=== PATIENT | female | born 1980 | race African-American/Black ===

== ENCOUNTER 2022-05-30 10:57 | Emergency (ER) | payer SELFPAY ==
--- NOTE | 2022-05-30 13:46 | ER ---
Nurse's Notes [facility] Name: Liliana Briseno Age: 41 yrs Sex: Female : 1980 Arrival Date: 05/30/2022 Time: 11:00 Bed Waiting Private MD: Diagnosis: SARS-associated coronavirus as the cause of diseases classified elsewhere;Rhinorrhea;Myalgia Presentation: 05/30 11:53 Chief complaint: Patient states: BAIG, sore throat, cough x 2 days. Coronavirus screen: jl Vaccine status: Patient reports receiving the 2nd dose of the covid vaccine. congestion, cough unrelated to allergies, headache, Client presents with at least one sign or symptom that may indicate coronavirus-19. Standard/surgical mask placed on the client. Ebola Screen: No symptoms or risks identified at this time. Initial Sepsis Screen: Does the patient meet any 2 criteria? No. Patient's initial sepsis screen is negative. Does the patient have a suspected source of infection? No. Patient's initial sepsis screen is negative. Risk Assessment: Do you want to hurt yourself or someone else? Patient reports no desire to harm self or others. Onset of symptoms was May 29, 2022. 11:53 Method Of Arrival: Ambulatory [facility] 11:53 Acuity: MARCIE 4 jl7 Triage Assessment: 12:00 Headache History: The patient has had previous headaches and this one is similar to jl7 previous episodes. General: Appears in no apparent distress. uncomfortable, Behavior is calm, cooperative, appropriate for age. Pain: Complains of pain in BAIG Pain currently is 5 out of 10 on a pain scale. Pain began gradually, Also complains of no other associated symptoms. Neuro: Level of Consciousness is awake, alert, obeys commands, Oriented to person, place, time, situation. 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 - Social history:: Smoking status: Reported history of juuling and/or vaping. Screenin:00 Abuse screen: Denies threats or abuse. Denies injuries from another. Nutritional jl7 screening: No deficits noted. Tuberculosis screening: No symptoms or risk factors identified. Fall Risk None identified. Assessment: 13:00 Reassessment: Patient appears in no apparent distress at this time. No changes from jl7 previously documented assessment. Patient and/or family updated on plan of care and expected duration. Pain level reassessed. Patient is alert, oriented x 3, equal unlabored respirations, skin warm/dry/pink. Vital Signs: 11:53 BP 156 / 86; Pulse 80; Resp 17; Temp 98.2; Pulse Ox 100% on R/A; Weight 122.47 kg; jl7 Height 5 ft. 8 in. (172.72 cm); Pain 5/10; 11:53 Body Mass Index 41.05 (122.47 kg, 172.72 cm) jl7 ED Course: 11:00 Patient arrived in ED. mr 11:25 Jun Phillips DO is Attending Physician. ms3 11:44 SARS-COV-2 RT PCR (Document "Date of Onset" if Symptomatic) Sent. 11:55 Triage completed. jl7 11:55 Arm band placed on right wrist. Patient placed in waiting room, Patient notified of jl7 wait time. 13:00 Patient has correct armband on for positive identification. jl7 13:44 Vinicius Tariq DO is Referral Physician. ms3 14:04 No provider procedures requiring assistance completed. Patient did not have IV access jl7 during this emergency room visit. Administered Medications: No medications were administered Medication: 14:04 VIS not applicable for this client. jl7 Outcome: 13:45 Discharge ordered by . ms3 14:04 Discharged to home ambulatory. jl7 14:04 Condition: stable 14:04 Discharge instructions given to patient, Instructed on discharge instructions, follow up and referral plans. medication usage, Demonstrated understanding of instructions, follow-up care, medications, Prescriptions given X 1. 14:05 Patient left the ED. jl7 Signatures: Peggy Jaquez mr Tino Michel RN RN jl7 Jun Phillips DO DO ms3 [address] Corrections: (The following items were deleted from the chart) 11:55 11:55 Home Meds: None; jl7 jl7
--- NOTE | 2022-05-30 13:46 | EDPHYS ---
Physician Documentation [facility] Name: Liliana Briseno Age: 41 yrs Sex: Female : 1980 Arrival Date: 05/30/2022 Time: 11:00 Bed Waiting Private MD: ED Physician Jun Phillips HPI: 05/30 11:41 This 41 yrs old Black Female presents to ER via Unassigned with complaints of Headache, ms3 Sore Throat, Congestion, Cough. 11:42 The patient or guardian reports cough. Onset: The symptoms/episode began/occurred ms3 gradually, yesterday. Severity of symptoms: At their worst the symptoms were moderate, in the emergency department the symptoms are unchanged. Modifying factors: The symptoms are alleviated by nothing, the symptoms are aggravated by nothing. Associated signs and symptoms: Pertinent positives: rhinorrhea, sore throat, Pertinent negatives: nausea, vomiting. 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 - Social history:: Smoking status: Reported history of juuling and/or vaping. ROS: 11:42 Constitutional: Negative for fever, and chills. ms3 11:42 Abdomen/GI: Negative for abdominal pain, nausea, vomiting, diarrhea, and constipation, MS/Extremity: Negative for injury and deformity, Skin: Negative for injury, rash, and discoloration, Neuro: Negative for headache, weakness, numbness, tingling. Hematologic/Lymphatic: Negative for swollen nodes, abnormal bleeding, and unusual bruising. 11:42 ENT: Positive for rhinorrhea, sore throat. Exam: 11:42 Constitutional: This is a well developed, well nourished patient who is awake, alert, ms3 and in no acute distress. Head/Face: Normocephalic, atraumatic. Neck: Trachea midline, no cervical lymphadenopathy. Supple, full range of motion without nuchal rigidity, or vertebral point tenderness. No Meningismus. Chest/axilla: Normal chest wall appearance and motion. Nontender with no deformity. Cardiovascular: Regular rate and rhythm with a normal S1 and S2. No gallops, murmurs, or rubs. Normal PMI, no JVD. No pulse deficits. Respiratory: Lungs have equal breath sounds bilaterally, clear to auscultation and percussion. No rales, rhonchi or wheezes noted. No increased work of breathing, no retractions or nasal flaring. Abdomen/GI: Soft, non-tender, with normal bowel sounds. No distension or tympany. No guarding or rebound. No evidence of tenderness throughout. Skin: Warm, dry with normal turgor. Normal color with no rashes, no lesions, and no evidence of cellulitis. MS/ Extremity: Pulses equal, no cyanosis. Neurovascular intact. Full, normal range of motion. Neuro: Awake and alert, GCS 15, oriented to person, place, time, and situation. Cranial nerves II-XII grossly intact. Motor strength 5/5 in all extremities. Sensory grossly intact. Cerebellar exam normal. Normal gait. Psych: Awake, alert, with orientation to person, place and time. Behavior, mood, and affect are within normal limits. Vital Signs: 11:53 BP 156 / 86; Pulse 80; Resp 17; Temp 98.2; Pulse Ox 100% on R/A; Weight 122.47 kg; jl7 Height 5 ft. 8 in. (172.72 cm); Pain 5/10; 11:53 Body Mass Index 41.05 (122.47 kg, 172.72 cm) jl7 MDM: 11:42 Differential Diagnosis: Bronchitis Upper Respiratory Infection Other COVID. ms3 13:45 Patient medically screened. ms3 13:45 Data reviewed: vital signs, nurses notes, lab test result(s), and as a result, I will ms3 discharge patient. Data interpreted: Pulse oximetry: on room air is 100 %. Interpretation: normal. Counseling: I had a detailed discussion with the patient and/or guardian regarding: the historical points, exam findings, and any diagnostic results supporting the discharge/admit diagnosis, lab results, the need for outpatient follow up, to return to the emergency department if symptoms worsen or persist or if there are any questions or concerns that arise at home. ED course: Patient is improved, in NAD, non-toxic appearing, ambulatory in ED, speaking full sentences.. 05/30 11:41 Order name: SARS-COV-2 RT PCR (Document "Date of Onset" if Symptomatic); Complete Time: ms3 13:11 Administered Medications: No medications were administered Disposition Summary: 05/30/22 13:45 Discharge Ordered Location: Home ms3 Condition: Stable ms3 Diagnosis - SARS-associated coronavirus as the cause of diseases classified elsewhere ms3 - Rhinorrhea ms3 - Myalgia ms3 Followup: ms3 - With: Vinicius Tariq DO - When: 2 - 3 days - Reason: Recheck today's complaints Discharge Instructions: - Discharge Summary Sheet ms3 - COVID-19 ms3 - Things to Know about the COVID-19 Pandemic - [facility] ms3 Forms: - Medication Reconciliation Form ms3 - Work release form ms3 - Thank You Letter ms3 - Antibiotic Education ms3 - Prescription Opioid Use ms3 Prescriptions: - Tessalon Perles 100 mg Oral Capsule - take 1 capsule by ORAL route every 8 hours As needed; 15 capsule; Refills: 0, ms3 Product Selection Permitted Signatures: Dispatcher [employer] Tino Rea RN RN Jun Herrera DO DO ms3 Corrections: (The following items were deleted from the chart) 11:55 11:55 Home Meds: None; nieves jlGiovanni
[2022-05-30 14:14] VITALS: BP 156/86; TEMP 98.2; O2SAT 100
--- OUTSIDE RECORDS SUMMARY | 2022-06-01 14:14 | XMS REPORT | Continuity of Care Document ---
:1980 Author Organization [facility] t Address [address] [place] [address] Care Team Providers Name Role Phone CORADO Attending Clinician Unavailable MD JANNETTE MCGUIRE Attending Clinician Unavailable MAYNOR Attending Clinician Unavailable CARMEN Attending Clinician Unavailable MD JANNETTE MCGUIRE Admitting Clinician Unavailable Problems This patient has no known problems. Allergies, Adverse Reactions, Alerts Allergy Allergy Status Severity Reaction(s) Onset Inactive Treating Comm ents Source Name Type Date Date Clinician NO KNOWN Allergy Active [facility] Medications This patient has no known medications. Vital Signs Vital Name Observation Time Observation Value Comments Source HEIGHT 2020-07-27 00:00:00 172.7 cm WEIGHT 2020-07-27 00:00:00 129.275 kg Procedures This patient has no known procedures. Encounters Start End Encounter Admission Attending Care Care Encounter Source Date/Time Date/Time Type Type Clinicians Facility Department ID 2020-07-27 2020-07-27 Emergency ER [facility] Emergency [id number] [facility] 14:28:00 14:28:00 2020-04-28 2020-04-28 Emergency MICKIE, [facility] [id number] [place] 00:00:00 00:00:00 MIGUEL [address] 2020-04-05 2020-04-05 Emergency MANISHTran, [facility] [id number] [place] 00:00:00 00:00:00 TAURUS [address] 2019-12-05 2019-12-06 Emergency CARMEN, [facility] [id number] [place] 00:00:00 00:00:00 SYDNI [address] 2018-08-26 2018-08-26 Emergency [facility] [id number] [place] 23:04:13 23:04:13 Health 2018-08-26 2018-08-26 Emergency [facility] [id number] [place] 16:18:04 16:18:04 Health Results Test Description Test Time Test Comments Results Result Comments Source SARS coronavirus 2 RNA [Presence] in Respiratory speci men by 2020-04-05 20:44:14 ARIANA with probe detection Test Item Value Reference Range Interpretation Comme nts SARS coronavirus 2 RNA [Presence] in Respiratory Not detected Not-D etected specimen by ARIANA with probe detection (test code = 59757-0)
== END 2022-05-30 14:05 | disposition home or self-care (01) ==
LOC: ER 10:57
DX: U07.1 COVID-19 (principal); M79.10 Myalgia, unspecified site; I10 Essential (primary) hypertension
CPT/HCPCS: 99283; U0003

== ENCOUNTER 2022-10-30 01:46 | Emergency (ER) | payer SELFPAY ==
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
[2022-10-30 02:44] LABS: Hematocrit 32.5 % (36.0-45.0); MCV 72.1 fL (80-100); MPV 7.6 fL (7.6-11.3); RBC Red Blood Cell Count 4.51 M/uL (3.86-4.86)
[2022-10-30 02:45] LABS: Protime INR 1.16
[2022-10-30] MEDS ORDERED: MORPHINE 4 MG/ML SYR ONE (02:52)
[2022-10-30] MEDS ORDERED: ONDANSETRON 4 MG/2 ML VIAL ONE (02:52)
[2022-10-30 03:02] LABS: Troponin High Sensitivity 6.4 pg/mL (<58.9)
[2022-10-30 03:16] LABS: SARS-COV-2 RT PCR NEGATIVE (NEGATIVE)
--- NOTE | 2022-10-30 04:50 | ER ---
Nurse's Notes [facility] Name: Liliana Briseno Age: 41 yrs Sex: Female : 1980 Arrival Date: 10/30/2022 Time: 01:49 Bed 17 Private MD: Diagnosis: Chest pain, unspecified Presentation: 10/30 02:05 Chief complaint: Patient states: I woke up with a sharp chest pain. I thought it was a jb4 gas pain so I took Veronica[place] and it did not help, I tried BC powder and it did not help. When I lay down it feels more like someone sitting on my chest. Coronavirus screen: At this time, the client does not indicate any symptoms associated with coronavirus-19. Ebola Screen: No symptoms or risks identified at this time. Initial Sepsis Screen: Does the patient meet any 2 criteria? HR > 90 bpm. Yes Does the patient have a suspected source of infection? No. Patient's initial sepsis screen is negative. Risk Assessment: Do you want to hurt yourself or someone else? Patient reports no desire to harm self or others. Onset of symptoms was October 30, 2022. Transition of care: patient was not received from another setting of care. 02:05 Method Of Arrival: Ambulatory jb4 02:05 Acuity: MARCIE 3 jb4 Historical: - Allergies: 02:08 No Known Allergies; jb4 - Home Meds: 02:08 None [Active]; jb4 - PMHx: 02:08 Hypertensive disorder; jb4 - PSHx: 02:08 Aortic Repair; jb4 - Immunization history:: Adult Immunizations up to date. - Social history:: Smoking status: Patient denies any tobacco usage or history of. Patient uses alcohol, occasionally. - Family history:: not pertinent. - Hospitalizations: : No recent hospitalization is reported. Screenin:10 [facility] ED Fall Risk Assessment (Adult) History of falling in the last 3 months, jb4 including since admission No falls in past 3 months (0 pts) Confusion or Disorientation No (0 pts) Intoxicated or Sedated No (0 pts) Impaired Gait No (0 pts) Mobility Assist Device Used No (0 pt) Altered Elimination No (0 pt) Score/Fall Risk Level 0 - 2 = Low Risk Oriented to surroundings, Maintained a safe environment. Abuse screen: Denies threats or abuse. Nutritional screening: No deficits noted. Tuberculosis screening: No symptoms or risk factors identified. Fall Risk No fall in past 12 months (0 pts). No IV (0 pts). Total Correia Fall Scale indicates No Risk (0-24 pts). Assessment: 02:10 General: Appears in no apparent distress. uncomfortable, Behavior is calm, cooperative, jb4 appropriate for age. Pain: Complains of pain in anterior aspect of left upper chest Pain does not radiate. Pain currently is 10 out of 10 on a pain scale. Quality of pain is described as sharp, stabbing, Pain began 1 hour ago. Neuro: Level of Consciousness is awake, alert, obeys commands, Oriented to person, place, time, situation. Cardiovascular: Patient's skin is warm and dry. Respiratory: Airway is patent Respiratory effort is even, unlabored, Respiratory pattern is regular, symmetrical. GI: No signs and/or symptoms were reported involving the gastrointestinal system. : No signs and/or symptoms were reported regarding the genitourinary system. EENT: No signs and/or symptoms were reported regarding the EENT system. Derm: Skin is intact, Skin is dry, Skin is normal, Skin temperature is warm. Musculoskeletal: Circulation, motion, and sensation intact. Range of motion: intact in all extremities. 03:00 Reassessment: Patient appears in no apparent distress at this time. Patient and/or jb4 family updated on plan of care and expected duration. Pain level reassessed. Patient is alert, oriented x 3, equal unlabored respirations, skin warm/dry/pink. 04:25 Reassessment: Patient appears in no apparent distress at this time. Patient and/or jb4 family updated on plan of care and expected duration. Pain level reassessed. Patient is alert, oriented x 3, equal unlabored respirations, skin warm/dry/pink. Patient states feeling better. Patient states symptoms have improved. 05:04 Reassessment: Patient appears in no apparent distress at this time. Patient and/or jb4 family updated on plan of care and expected duration. Pain level reassessed. Patient is alert, oriented x 3, equal unlabored respirations, skin warm/dry/pink. Patient states feeling better. Vital Signs: 02:05 BP 151 / 88; Pulse 107; Resp 17 S; Temp 98.9(O); Pulse Ox 97% on R/A; Weight 122.47 kg jb4 (R); Height 5 ft. 8 in. (172.72 cm) (R); Pain 10/10; 03:18 BP 148 / 81; Pulse 101; Resp 17; Pulse Ox 97% on R/A; jb4 04:24 BP 153 / 86; Pulse 98; Resp 17; Pulse Ox 98% on R/A; jb4 02:05 Body Mass Index 41.05 (122.47 kg, 172.72 cm) jb4 ED Course: 01:49 Patient arrived in ED. ja2 01:50 Leon Davis MD is Attending Physician. rn 02:05 Will Rodriguez, LOGAN is Primary Nurse. jb4 02:08 Triage completed. jb4 02:08 Arm band placed on right wrist. jb4 02:10 Patient has correct armband on for positive identification. Placed in gown. Bed in low jb4 position. Call light in reach. Side rails up X 1. Client placed on continuous cardiac and pulse oximetry monitoring. NIBP monitoring applied. satellite project site monitor on. 02:13 XRAY Chest (1 view) In Process Unspecified. EDMS 02:18 Initial lab(s) drawn, by me, sent to lab. Inserted saline lock: 18 gauge in right jb4 antecubital area, using aseptic technique. Blood collected. 02:18 Patient maintains SpO2 saturation greater than 95% on room air. jb4 02:29 COVID-19/FLU A+B Sent. jb4 02:29 Basic Metabolic Panel Sent. jb4 02:29 NT PRO-BNP Sent. jb4 02:29 CBC with Diff Sent. jb4 02:29 PT-INR Sent. jb4 02:29 Troponin HS Sent. jb4 02:59 CT Chest For PE Angio In Process Unspecified. EDMS 05:06 IV discontinued, intact, bleeding controlled, No redness/swelling at site. Pressure jb4 dressing applied. 05:06 No provider procedures requiring assistance completed. jb4 Administered Medications: 03:03 Drug: morphine 4 mg Route: IVP; Infused Over: 4 mins; Site: right antecubital; jb4 03:30 Follow up: Response: No adverse reaction; Marked relief of symptoms; RASS: Alert and jb4 Calm (0) 03:03 Drug: Zofran (Ondansetron) 4 mg Route: IVP; Site: right antecubital; jb4 03:30 Follow up: Response: No adverse reaction jb4 Medication: 05:04 VIS not applicable for this client. jb4 Outcome: 04:49 Discharge ordered by . rn 05:06 Discharged to home ambulatory. jb4 05:06 Condition: stable 05:06 Discharge instructions given to patient, Instructed on discharge instructions, follow up and referral plans. no drinking with medication, no driving heavy equipment, medication usage, Demonstrated understanding of instructions, follow-up care, medications, Prescriptions given X 1. 05:07 Patient left the ED. jb4 Signatures: Dispatcher [employer] EDMS Leon Davis MD MD rn Bryson, James, RN RN jb4 Odilia Murillo
--- NOTE | 2022-10-30 04:50 | EDPHYS ---
Physician Documentation [facility] Name: Liliana Briseno Age: 41 yrs Sex: Female : 1980 Arrival Date: 10/30/2022 Time: 01:49 Bed 17 Private MD: ED Physician Leon Davis HPI: 10/30 02:46 This 41 yrs old Black Female presents to ER via Ambulatory with complaints of Chest rn Pain. 02:46 The patient or guardian reports chest pain that is located primarily in the anterior rn chest wall, left. 02:48 Onset: today. The pain does not radiate. Associated signs and symptoms: Pertinent rn positives: None. Pertinent negatives: abdominal pain, cough, lower extremity pain, lower extremity swelling, shortness of breath, syncope, vomiting. 02:50 The chest pain is described as a pressure. Duration: The patient or guardian reports rn multiple episodes, that are intermittent. Modifying factors: The symptoms are alleviated by nothing. the symptoms are aggravated by deep breath. Severity of pain: At its worst the pain was moderate in the emergency department the pain is unchanged. The patient has experienced a previous episode. The patient has not recently seen a physician. Pt reports left sided chest pain, woke her up from sleep, is worried because the last time she had pain like this, was from COVID. Denies injury. No fever/cough/abd pain/sob. . Historical: - Allergies: 02:08 No Known Allergies; jb4 - Home Meds: 02:08 None [Active]; jb4 - PMHx: 02:08 Hypertensive disorder; jb4 - PSHx: 02:08 Aortic Repair; jb4 - Immunization history:: Adult Immunizations up to date. - Social history:: Smoking status: Patient denies any tobacco usage or history of. Patient uses alcohol, occasionally. - Family history:: not pertinent. - Hospitalizations: : No recent hospitalization is reported. ROS: 02:50 Constitutional: Negative for fever, chills, and weight loss, Eyes: Negative for injury, rn pain, redness, and discharge, Neck: Negative for injury, pain, and swelling, Cardiovascular: + left sided chest pain Respiratory: Negative for shortness of breath, cough, wheezing Abdomen/GI: Negative for abdominal pain, nausea, vomiting, diarrhea, and constipation, Back: Negative for injury and pain, MS/Extremity: Negative for injury and deformity, Skin: Negative for injury, rash, and discoloration, Neuro: Negative for headache, weakness, numbness, tingling, and seizure. Exam: 02:37 ECG was reviewed by the Attending Physician. rn 02:50 Constitutional: This is a well developed, well nourished patient who is awake, alert, rn appears uncomfortable Head/Face: Normocephalic, atraumatic. Eyes: Pupils equal round and reactive to light, extra-ocular motions intact. Lids and lashes normal. Conjunctiva and sclera are non-icteric and not injected. Cornea within normal limits. Periorbital areas with no swelling, redness, or edema. Cardiovascular: Tachycardic, regular. No pulse deficits. Respiratory: Clear bilateral breath sounds. No increased work of breathing, no retractions or nasal flaring. Abdomen/GI: Soft, non-tender Skin: Warm, dry MS/ Extremity: Pulses equal, no cyanosis. Neurovascular intact. Full, normal range of motion. Equal circumference. Neuro: Awake and alert, GCS 15 Vital Signs: 02:05 BP 151 / 88; Pulse 107; Resp 17 S; Temp 98.9(O); Pulse Ox 97% on R/A; Weight 122.47 kg jb4 (R); Height 5 ft. 8 in. (172.72 cm) (R); Pain 10/10; 03:18 BP 148 / 81; Pulse 101; Resp 17; Pulse Ox 97% on R/A; jb4 04:24 BP 153 / 86; Pulse 98; Resp 17; Pulse Ox 98% on R/A; jb4 02:05 Body Mass Index 41.05 (122.47 kg, 172.72 cm) jb4 MDM: 01:50 Patient medically screened. rn 04:46 Differential diagnosis: acute pericarditis, anxiety, coronary artery disease chest wall rn pain, costochondritis, esophagitis, gastritis, gastroesophageal reflux disease (GERD), pericarditis, pleurisy, pneumonia, pneumothorax, pulmonary embolus. HEART Score: History: Slightly Suspicious (0), ECG: Normal (0), Age: < or = 45 years (0), Risk Factors: No Risk Factors Known (0), Troponin: < or = 1 x Normal Limit (0), Total Score = 0. Data reviewed: vital signs, nurses notes, lab test result(s), EKG, radiologic studies. Counseling: I had a detailed discussion with the patient and/or guardian regarding: the historical points, exam findings, and any diagnostic results supporting the discharge/admit diagnosis, lab results, radiology results, the need for outpatient follow up, to return to the emergency department if symptoms worsen or persist or if there are any questions or concerns that arise at home. Response to treatment: the patient's symptoms have markedly improved after treatment, and as a result, I will discharge patient. Special discussion: Based on the patient's history, exam, and Dx evaluation, there is no indication for emergent intervention or inpatient Tx. It is understood by the patient/guardian that if the Sx's persist or worsen they need to return immediately for re-evaluation. I discussed with the patient/guardian in detail that at this point there is no indication for admission to the hospital. It is understood, however, that if the symptoms persist or worsen the patient needs to return immediately for re-evaluation. Based on the history and exam findings, there is no indication for further emergent testing or inpatient evaluation. I discussed with the patient/guardian the need to see the primary care provider for further evaluation of the symptoms. I discussed with the patient/guardian the need to see the commercial subcontractor for further evaluation of the symptoms. ED course: NO acute findings in blood/ECG/CT chest. Discussed findings of pulmonary nodule and nonspecific thickening of pleura and need for serial testing as outpatient. Thickening of pleura and scalloping of fifth rib likely related more to distant trauma and has large scar in that area from broken ribs and had chest tube, but will f/u. Return precautions given and understood. . 10/30 01:58 Order name: Basic Metabolic Panel; Complete Time: 03:45 rn 10/30 01:58 Order name: CBC with Diff; Complete Time: 03:45 rn 10/30 01:58 Order name: NT PRO-BNP; Complete Time: 03:45 rn 10/30 01:58 Order name: PT-INR; Complete Time: 03:45 rn 10/30 01:58 Order name: Troponin HS; Complete Time: 03:45 rn 10/30 01:58 Order name: COVID-19/FLU A+B; Complete Time: 03:45 rn 10/30 01:58 Order name: XRAY Chest (1 view) rn 10/30 01:58 Order name: EKG; Complete Time: 01:59 rn 10/30 01:58 Order name: Cardiac monitoring; Complete Time: 02:05 rn 10/30 01:58 Order name: EKG - Nurse/Tech; Complete Time: 02:05 rn 10/30 01:58 Order name: CT Chest For PE Angio rn 10/30 03:08 Order name: CREATININE WHOLE BLOOD; Complete Time: 03:45 EDMS 10/30 01:58 Order name: IV Saline Lock; Complete Time: 02:29 rn 10/30 01:58 Order name: Labs collected and sent; Complete Time: 02:29 rn 10/30 01:58 Order name: O2 Per Protocol; Complete Time: 02:05 rn 10/30 01:58 Order name: O2 Sat Monitoring; Complete Time: 02:05 rn EC:37 Rate is 102 beats/min. Rhythm is regular. QRS [place] is Normal. PA interval is normal. rn QRS interval is normal. QT interval is normal. No Q waves. T waves are Normal. No ST changes noted. Clinical impression: Sinus tachycardia. Interpreted by me. Reviewed by me. Administered Medications: 03:03 Drug: morphine 4 mg Route: IVP; Infused Over: 4 mins; Site: right antecubital; jb4 03:30 Follow up: Response: No adverse reaction; Marked relief of symptoms; RASS: Alert and jb4 Calm (0) 03:03 Drug: Zofran (Ondansetron) 4 mg Route: IVP; Site: right antecubital; jb4 03:30 Follow up: Response: No adverse reaction jb4 Disposition Summary: 10/30/22 04:49 Discharge Ordered Location: Home rn Problem: new rn Symptoms: have improved rn Condition: Stable rn Diagnosis - Chest pain, unspecified rn Followup: rn - With: Private Physician - When: As needed - Reason: Recheck today's complaints, Re-evaluation by your physician Discharge Instructions: - Discharge Summary Sheet rn - Nonspecific Chest Pain, Adult rn - Pain Without a Known Cause rn Forms: - Medication Reconciliation Form rn - Thank You Letter rn - Antibiotic patternmaker plastics - Prescription Opioid Use rn Prescriptions: - Tramadol 50 mg Oral Tablet - take 1 tablet by ORAL route every 8 hours as needed; 12 tablet; Refills: 0, rn Product Selection Permitted Signatures: Dispatcher [employer] Leon Palacios MD MD rn Will Rodriguez RN RN jb4
[2022-10-30 05:16] VITALS: TEMP 98.9
[2022-10-30 05:32] VITALS: BP 153/86; O2SAT 98
--- NOTE | 2022-10-30 13:51 | RAD REPORT ---
EXAM DESCRIPTION: RAD - Chest Single View - 10/30/2022 2:11 am CLINICAL HISTORY: CHEST PAIN TECHNIQUE: Frontal view of the chest. COMPARISON: No relevant prior studies available. FINDINGS: Lungs: Unremarkable. No consolidation. Pleural space: Unremarkable. No pneumothorax. Heart: Unremarkable. No cardiomegaly. Mediastinum: Unremarkable. Bones/joints: Mild multilevel spondylosis. No acute fracture. IMPRESSION: No acute disease. Electronically signed by: Dora Aceves MD 10/30/2022 2:21 AM ASSISTANT PROFESSOR Due to temporary technical issues with the PACS/Fluency reporting system, reports are being signed by the in house radiologists without review as a courtesy to insure prompt reporting. The interpreting radiologist is fully responsible for the content of the report.
--- NOTE | 2022-10-30 13:55 | RAD REPORT ---
EXAM DESCRIPTION: CT - Chest For Pe Angio - 10/30/2022 6:18 am CLINICAL HISTORY: The patient is 41 years old and is Female; left sided pleuritic chest pain TECHNIQUE: Axial computed tomographic angiography images of the chest with intravenous contrast. S agittal and coronal reformatted images were created and reviewed. This CT exam was performed using one or more of the following dose reduction techniques: automated exposure control, adjustment of t he mA and/or kV according to patient size, and/or use of iterative reconstruction technique. MIP re constructed images were created and reviewed. COMPARISON: No relevant prior studies available. FINDINGS: Pulmonary arteries: Unremarkable. No pulmonary embolism. Aorta: No acute findings. No thoracic aortic aneurysm. Lungs: 8 mm pulmonary nodule in the lingular region. Pleural space: There is the suggestion of pleural thickening along the left posterior-lateral ch est wall with scalloping of the left posterior lateral fifth rib. No significant effusion. No pneumothorax. Heart: Unremarkable. No cardiomegaly. No significant pericardial effusion. No evidence of RV dysfunction. Bones/joints: No acute fracture. No dislocation. Soft tissues: Unremarkable. Lymph nodes: Unremarkable. No enlarged lymph nodes. IMPRESSION: 1. 8 mm pulmonary nodule in the lingular region. 2. There is the suggestion of pleural thickening along the left posterior-lateral chest wall with s calloping of the left posterior lateral fifth rib. Finding is nonspecific, but neoplasm is not enti rely excluded. Electronically signed by: Dariel Howell MD 10/30/2022 3:26 AM DORMITORY SUPERVISOR Due to temporary technical issues with the PACS/Fluency reporting system, reports are being signed by the in house radiologists without review as a courtesy to insure prompt reporting. The interpreting radiologist is fully responsible for the content of the report.
--- NOTE | 2022-10-31 15:17 | EKG ---
Test Date: 2022-10-30 Test Time: 01:58:14 Upholstery Repairer: ALY MEASUREMENT RESULTS: Intervals: Rate: 102 [place]: 138 QRSD: 96 QT: 356 QTc: 463 [place]: P: 55 [place]: 138 QRS: -13 T: 49 INTERPRETIVE STATEMENTS: Sinus tachycardia Otherwise normal ECG No previous ECG available for comparison Electronically Signed On 10-31-22 15:15:57 PARATRANSIT DRIVER by Albino Sanderson
== END 2022-10-30 05:07 | disposition home or self-care (01) ==
LOC: ER 01:46
DX: R07.89 Other chest pain (principal); I10 Essential (primary) hypertension; Z20.822 Contact with and (suspected) exposure to COVID-19
CPT/HCPCS: 0240U; 36415; 71045; 71275; 80048; 82565; 83880; 84484; 85025; 85610; 93005; 96374; 96375; 99285; J2405; Q9967